=== PATIENT | male | born 2000 | race Two or more races ===

== ENCOUNTER 2018-10-24 02:07 | Emergency (ER) | payer OTHER ==
[2018-10-24 02:13] VITALS: TEMP 98.8; BMI 35.2
--- NOTE | 2018-10-24 02:40 | PDOC ---
History of Present Illness - General Chief Complaint: Shortness of Breath Stated Complaint: DIFFICULTY BREATHING History Source: Patient Exam Limitations: No Limitations - History of Present Illness Initial Comments: 10/24/18 02:38 18 yo h/o childhood asthma, occasional thc use, here with c/o sob, and plueritic chest pain. pt describing a plueritic sharp left sided chest pain. started earlier this evening. somewhat similar to asthma, sandy hasn't had difficulty with asthma since 6 yrs old. no h/o pe or dvt. no recent travel. no recent leg or calf pain. no f/c no n/v no cough. denies trauma to chest. did not take anything for pain. smokes THC occasionally, hasn't smoked in several weeks. 10/24/18 03:28 Past History - Past Medical History Allergies/Adverse Reactions: Allergies Allergy/AdvReac Type Severity Reaction Status Date / Time No Known Allergies Allergy Verified 11/16/14 18:57 Home Medications: Ambulatory Orders Albuterol Sulfate Inhaler - [Ventolin HFA Inhaler -] 2 puff IH Q4H PRN #1 inhaler MDD 1 10/24/18 COPD: No - Immunization History Immunization Up to Date: Yes - Suicide/Smoking/Psychosocial Hx Smoking History: Current some day smoker Have you smoked in the past 12 months: No Information on smoking cessation initiated: No Hx Alcohol Use: No Substance Use Type: None Review of Systems - Review of Systems Constitutional: No: Chills, Diaphoresis HEENTM: No: Eye Pain, Blurred Vision Respiratory: Yes: Shortness of Breath. No: Cough, Orthopnea Cardiac (ROS): Yes: Chest Pain. No: Edema, Irregular Heart Rate ABD/GI: No: Abdominal Distended : No: Burning, Dysuria Musculoskeletal: No: Back Pain, Gout, Joint Pain All Other Systems: Reviewed and Negative *Physical Exam - Vital Signs Last Vital Signs Temp Pulse Resp BP Pulse Ox 98.8 F 92 H 18 127/76 100 10/24/18 02:10 10/24/18 02:10 10/24/18 02:10 10/24/18 02:10 10/24/18 02:10 - Physical Exam General Appearance: Yes: Nourished HEENT: positive: Normal ENT Inspection Neck: positive: Trachea midline Respiratory/Chest: positive: Lungs Clear, Normal Breath Sounds. negative: Chest Tender, Accessory Muscle Use Cardiovascular: positive: Regular Rhythm, Regular Rate, S1, S2 Gastrointestinal/Abdominal: positive: Normal Bowel Sounds, Flat, Soft. negative : Tender Musculoskeletal: positive: Normal Inspection. negative: CVA Tenderness Extremity: positive: Normal Capillary Refill, Normal Inspection Integumentary: positive: Normal Color, Dry, Warm Neurologic: positive: Fully Oriented, Alert, Normal Mood/Affect Heart Score/ECG Review #1 General ECG Interpretation: Sinus Rhythm, Normal Rate (66), Normal Intervals, No acute ischemic changes ED Treatment Course - LABORATORY CBC & Chemistry Diagram: 10/24/18 03:16 10/24/18 03:16 Medical Decision Making - Medical Decision Making 10/24/18 02:56 differenetial diagnosis, msk pain strain, ptx spontaneous, pe ( low risk), plan cxr labs duoneb, d diner labs. reassess ekg. 10/24/18 06:10 pt with negative d dimer 333. cxr normal. labs unremarkable. feels better after nebulizer will dc home with inhaler. *DC/Admit/Observation/Transfer Diagnosis at time of Disposition: Bronchospasm - Discharge Dispostion Disposition: HOME Condition at time of disposition: Improved Decision to Admit order: No - Prescriptions Prescriptions: Albuterol Sulfate Inhaler - [Ventolin HFA Inhaler -] 2 puff IH Q4H PRN #1 inhaler MDD 1 PRN Reason: Wheezing - Referrals Referrals: Raimundo Miller MD [Staff Physician] - - Patient Instructions Printed Discharge Instructions: Asthma -- Adult Additional Instructions: you can use albuterol inhaler 2 puffs every 4 hours as needed for shortness of breath or wheezing or pain. . your xray was negative for infection or pneumonia. your ekg is normal, your d dimer was negative which is a screening test for a blood clot and it was negative. you should follow up with your primary doctor call to schedule. if you do not have one you can follow up with any doctor at the [facility]. see referral information and call to schedule. return for shortness of breath or pain not responsive to the medication, fever or any concerns. - Post Discharge Activity
[2018-10-24] MEDS ORDERED: SODIUM CHLORIDE 0.9% 1000 ML INFUS.BAG IV ONE ×2 (02:59→03:01)
[2018-10-24] MEDS ORDERED: ALBUTEROL SO4 2.5/IPRATROPIUM 0.5 INH SOL 3 ML VIAL.NEB. NEB ONE ×2 (03:00→03:19)
[2018-10-24 03:37] LABS: BASO % 0.7 % (0-2.0); EOS % 3.1 % (0-4.5); HEMOGLOBIN 14.2 GM/dL (11.7-16.9); LYMPH % 9.9 % (8-40); MCH 30.8 pg (25.7-33.7); MCHC 32.9 g/dl (32.0-35.9); MEAN CELL VOLUME 93.4 fl (80-96); MEAN PLT VOLUME 9.7 fl (7.5-11.1); MONO % 8.7 % (3.8-10.2); NEUT % 77.6 % (42.8-82.8); PLATELET COUNT 194 K/MM3 (134-434); RBC 4.61 M/mm3 (4.00-5.60); RDW 12.9 % (11.9-15.9); WHITE BLOOD COUNT 10.6 K/mm3 (4.0-10.0)
[2018-10-24 03:52] LABS: INR 1.1 (0.83-1.09)
[2018-10-24 03:55] LABS: ACTIVATED PTT 33.8 SECONDS (25.2-36.5)
[2018-10-24 04:08] LABS: BILIRUBIN,TOTAL 0.8 mg/dL (0.2-1); CALCIUM 8.8 mg/dL (8.5-10.1); CREATININE 1.2 mg/dL (0.55-1.3); POTASSIUM 4.1 mmol/L (3.5-5.1); TOT PROT 7.6 g/dl (6.4-8.2)
[2018-10-24 06:31] VITALS: BP 129/80; PULSE 84
--- NOTE | 2018-10-24 10:59 | EKG ---
Test Reason : Blood Pressure : / mmHG Vent. Rate : 066 BPM Atrial Rate : 066 BPM P-R Int : 140 ms QRS Dur : 092 ms QT Int : 372 ms P-R-T Axes : 051 051 053 degrees QTc Int : 389 ms NORMAL SINUS RHYTHM WITH SINUS ARRHYTHMIA NORMAL ECG NO PREVIOUS ECGS AVAILABLE Confirmed by JOAQUINA NORTON MD ([id number]) on 10/24/2018 10:59:36 AM Referred By: Confirmed By:JOAQUINA NORTON MD
== END 2018-10-24 06:20 | disposition home or self-care (01) ==
LOC: JER 02:07
PROC: 3E0F7GC Introduction of Other Therapeutic Substance into Respiratory Tract, Via Natural or Artificial Opening (ICD-10-PCS; principal; 2018-10-24)
DX: J45.998 Other asthma (principal)
CPT/HCPCS: 36415; 71046-TC-FY; 80053; 85025; 85379; 85610; 85730; 93005; 93010; 94640; 99282-25